=== PATIENT | male | born 1995 | race Two or more races ===

== ENCOUNTER 2024-02-28 09:01 | Emergency (ER) | payer OTHER ==
[~2024-02-28] VITALS: Ht 167.6 cm; Wt 63.5 kg
[2024-02-28] MEDS ORDERED: [UNRECOGNIZED DRUG - OTHER] PO (09:28)
[2024-02-28] MEDS ORDERED: NASAL MIST126 ML (09:29)
[2024-02-28] MEDS ORDERED: [UNRECOGNIZED DRUG - OTHER] (09:29)
[2024-02-28] MEDS ORDERED: ONDANSETRON HCL 2 MG/ML VIAL IV STA (09:56)
[2024-02-28] MEDS ORDERED: 0.9 % SODIUM CHLORIDE 1,000 ML IV STA (09:56)
[2024-02-28 11:22] LABS: HEMATOCRIT 54.4 % (39.0-48.0); HEMOGLOBIN 18.7 g/dL (13-16.00); MEAN CELL VOLUME 91.8 fL (80.0-100.00); MEAN CORPUSCULAR HEMOGLOBIN 31.6 pg (27.00-32.0); MEAN CORPUSCULAR HGB CONC 34.4 g/dl (32.0-36.0); PLATELET COUNT 171 K/uL (150-450); RED BLOOD COUNT 5.92 M/uL (4.00-6.00); RED CELL DISTRIBUTION WIDTH 13.8 % (11.5-14.5)
[2024-02-28 11:38] LABS: CALCIUM 10.3 mg/dL (8.5-10.1); CREATININE SERUM 1.08 mg/dL (0.70-1.30); GFR 82.02; POTASSIUM 4.32 mEq/L (3.5-5.1)
[2024-02-28 12:29] LABS: PH,URINE 8.5 (5.0-8.0); URINE APPEARANCE Clear; URINE BILIRRUBIN Negative (NEGATIVE); URINE BLOOD Negative; URINE COLOR Yellow; URINE GLUCOSE Negative (NEGATIVE); URINE LEUKOCYTE Negative; URINE NITRATE Negative; URINE PROTEIN Trace (NEGATIVE)
[2024-02-28 12:33] LABS: URINE BACTERIA 7.5 uL (0.0-1933); URINE RBC 44.1 uL (0.0-20.8)
[2024-02-28 12:43] LABS: URINE EPITHELIAL CELLS 0.9 uL (0.0-38.8); URINE KETONE 40 (NEGATIVE)
== END 2024-02-28 14:47 | disposition home or self-care (01) ==
LOC: ER 09:03
PROVIDERS: Emergency Medicine
DX: K52.89 Other specified noninfective gastroenteritis and colitis (principal); Z88.8 Allergy status to other drugs, medicaments and biological substances; E78.00 Pure hypercholesterolemia, unspecified